=== PATIENT | male | born 2000 | race Caucasian/White ===

== ENCOUNTER 2021-04-14 04:07 | Emergency (ER) | payer OTHER ==
[~2021-04-14] VITALS: Ht 177.8 cm; Wt 81.7 kg
[2021-04-14 04:08] VITALS: BP 147/92
== END 2021-04-14 06:22 | disposition home or self-care (01) ==
LOC: ER 04:07
DX: F32.9 Major depressive disorder, single episode, unspecified (principal); Z59.00 Homelessness unspecified; Z90.89 Acquired absence of other organs